=== PATIENT | female | born 1980 | race Hispanic/Latino ===

== ENCOUNTER 2016-11-09 16:02 | Emergency (ER) | payer OTHER ==
[~2016-11-09] VITALS: Ht 162.6 cm; Wt 59.0 kg
[~2016-11-09 16:02] MED LIST: COMPAZINE10 M1 PO; ENDOCET 325 MG-1 TA1 PO; FLEXERIL10 MG PO; LEVSIN0.125 M1 PO; OXYCODONE AND A1 TA2 PO; PERCOCET 325 MG1 TA2 PO; PERCOCET 325 MG1 TAB PO; PERCOCET 5-3251 EACH PO; PROMETHAZINE25 MG PR; PROTONIX20 M1 PO; ULTRAM(MONOGRAP50 MG PO; VICODIN 300 MG-1 TAB PO; ZOFRAN 4 MG TABL4 MG PO; ZOFRAN 8MG8 MG PO; ZOFRAN ODT4 MG PO; ZOFRAN4 M1 SL; ZOFRAN4 M2 PO
[2016-11-09 16:25] VITALS: BP 129/86
== END 2016-11-09 16:38 | disposition admitted as inpatient to this hospital (09) ==
LOC: ERH 16:02
DX: N93.9 Abnormal uterine and vaginal bleeding, unspecified (principal)
CPT/HCPCS: 81025

== ENCOUNTER 2017-10-30 15:17 | Emergency (ER) | payer OTHER ==
[~2017-10-30] VITALS: Ht 167.6 cm; Wt 72.6 kg
[~2017-10-30 15:17] MED LIST changes: +CEFUROXIME500 MG PO; +IBUPROFEN800 M1 PO; +ZOFRAN ODT4 M1 SL
[2017-10-30 15:45] LABS: ABSOLUTE BASOPHIL COUNT 0 /CUMM (0.0-0.2); ABSOLUTE EOSINOPHIL COUNT 0 /CUMM (0.0-0.7); ABSOLUTE LYMPH COUNT 0.9 /CUMM (1.2-3.4); ABSOLUTE MONOCYTE COUNT 0.4 /CUMM (0.10-0.60); BASOPHIL % 0.1 % (0.0-2.0); EOSINOPHIL % 0.1 % (0-5); GRANULOCYTE % 93.1 % (42.2-75.2); MEAN CORPUSCULAR HGB 31.4 PG (27.0-31.0); MEAN CORPUSCULAR HGB CONC 33.5 G/DL (33.0-37.0); MEAN CORPUSCULAR VOLUME 93.8 FL (81.0-99.0); MEAN PLATELET VOLUME 7.4 FL (7.4-10.4); PLATELET COUNT 316 /CUMM (130-400); RBC DISTRIBUTION WIDTH 14.2 % (11.5-14.5); RED BLOOD CELL CT 4.38 /CUMM (4.20-5.40); WHITE BLOOD CELL COUNT 20.4 /CUMM (4.8-10.8)
--- NOTE | 2017-10-30 16:22 | ED GI/GU/ABDOMINAL COMPLAINT ---
History of Present Illness General Chief Complaint: Nausea, Vomiting, Diarrhea Stated Complaint: +N/V Source: patient, family Exam Limitations: no limitations Vital Signs & Intake/Output Vital Signs & Intake/Output Vital Signs Date Time Temp Pulse Resp B/P B/P Pulse O2 O2 Flow FiO2 Mean Ox Delivery Rate 10/30 2226 98.0 70 20 122/78 98 10/30 1856 98.5 76 18 105/57 98 Room Air 10/30 1710 Room Air 10/30 1649 97.9 71 18 125/75 97 Room Air 10/30 1524 98.1 84 18 127/71 96 Room Air ED Intake and Output 10/31 0000 10/30 1200 Intake Total Output Total Balance Patient 160 lb Weight Allergies Coded Allergies: latex (RASH, SOB 05/16/16) Reconcile Medications Acetaminophen (Tylenol Extra Strength) 500 MG TABLET 1 TAB PO TID Flank Pain Cefuroxime Axetil (Cefuroxime) 500 MG TABLET 1 TAB PO BID urine infection Cephalexin (Keflex) 500 MG CAPSULE 1 CAP PO Q6 Pyelonephritis Ibuprofen 800 MG TABLET 1 TAB PO TID PRN PAIN Ondansetron (Zofran Odt) 4 MG TAB.RAPDIS 1 TAB SL TID PRN NAUSEA Ondansetron (Zofran Odt) 4 MG TAB.RAPDIS 1 TAB SL TID PRN vomiting Ondansetron (Zofran Odt) 4 MG TAB.RAPDIS 1 TAB SL TID Nausea and Vomiting Oxycodone HCl 5 MG CAPSULE 1 CAP PO 4XDP Flank Pain/Pyelonephritis Triage Note: 37F WITH SEVERE ABDOMINAL/RIGHT FLANK PAIN WITH VOMITING SINCE LAST NIGHT. HX NEPHRECTOMY. MEDICATED WITH ZOFRAN IN TRIAGE. PT BARELY ABLE TO SPEAK DUE TO PAIN AND DISTRESS. Triage Nurses Notes Reviewed? yes ? N Is pt currently ? No HPI: 37 yo F PMH left nephrectomy presenting with abdominal pain, N/V, urinary Sx. Abdominal pain for the last 1-2 days, right flank, constant with flucutating intensity, radiating to the RLQ, progressive, worse with movement or palpation. Some loose watery bowel movements. Nausea with 10+ episodes of NBNB emesis, patient tried to control Sx with zofran without relief. Associated urinary Sx with dysuria, increased urinary frequency, dark urine. Denies fevers, chills, chest pain, SOB, palpitations, cough or URI Sx, constipation, bloody stools, vaginal discharge, vaginal bleeding. (Vivek Winslow MD) Past History Travel History Traveled to [place] past 21 day No Medical History Any Pertinent Medical History? 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 No (Vivek Winslow MD) Review of Systems Review of Systems Constitutional: Reports: see HPI. EENTM: Reports: no symptoms. Respiratory: Reports: no symptoms. Cardiovascular: Reports: no symptoms. GI: Reports: see HPI. Genitourinary: Reports: see HPI. Musculoskeletal: Reports: no symptoms. Skin: Reports: no symptoms. Neurological/Psychological: Reports: no symptoms. Hematologic/Endocrine: Reports: no symptoms. Immunologic/Allergic: Reports: no symptoms. All Other Systems: Reviewed and Negative (Vivek Winslow MD) Physical Exam Physical Exam General Appearance: well developed/nourished, no apparent distress, alert, awake , mild distress Head: atraumatic Eyes: Bilateral: PERRL, EOMI. Ears, Nose, Throat, Mouth: hearing grossly normal, moist mucous membrane Neck: normal inspection Respiratory: normal breath sounds, no respiratory distress, lungs clear Cardiovascular: regular rate/rhythm, normal peripheral pulses Gastrointestinal: soft, tenderness Comments: General: Grimacing, appears uncomfortable, mild distress, laying still in hospital bed Abdomen: Mild suprapubic and RLQ TTP without rebound or guarding Back: Marked right CVA TTP, no midline vertebral bony TTP Core Measures ACS in differential dx? No Sepsis Present: No Sepsis Focused Exam Completed? No (Vivek Winslow MD) Progress Differential Diagnosis: AAA, AMI, appendicitis, biliary colic, bowel obstruction , colon cancer, cholecystitis, diverticulitis, ectopic , endometritis, esophageal varices, gastritis, hepatitis, hernia, hemorrhoids, ischemic bowel, inflamm bowel dis, intrauterine , kidney stone, Stephanie-Valdez tear, ovarian cyst, ovarian torsion, pancreatitis, PID/cervicitis, peptic ulcer, PUD/ GERD, perforated viscous, SBO, threatened AB, UTI/pyelo Plan of Care: Orders Procedure Date/time Status Add-on Test (ER Only) 10/30 1904 Active CULTURE,URINE 10/30 1834 Active LACTIC ACID 10/30 182 Complete Add-on Test (ER Only) 10/30 175 Active HUMAN BETA HCG SCREEN 10/30 153 Complete URINALYSIS 10/30 152 Complete LIPASE 10/30 152 Complete LACTIC ACID 10/30 152 Complete COMPREHENSIVE METABOLIC PANEL 10/30 152 Complete CBC WITHOUT DIFFERENTIAL 10/30 152 Complete Laboratory Tests 10/30/17 191: Lactic Acid 1.5 10/30/171834: Urine Color BLDY H, Urine Clarity TURBD H, Urine pH 7.0, Ur Specific Agenda 1.020, Urine Protein >=300 H, Urine Ketones TRACE H, Urine Nitrite POS H, Urine Bilirubin NEG@ICTO, Urine Urobilinogen 1.0, Ur Leukocyte Esterase LARGE H , Ur Microscopic SEDIMENT EXAMINED, Urine RBC PACKD H, Urine WBC PACKD H, Ur Epithelial Cells FEW, Urine Bacteria FEW H, Urine Mucus FEW, Urine Hemoglobin LARGE H, Urine Glucose NEG 10/30/17 1647: Urine Test Cancelled 10/30/17 1530: Anion Gap 17 H, Estimated GFR > 60, BUN/Creatinine Ratio 18.6, Glucose 149 H, Lactic Acid 2.7 H, Calcium 10.1, Total Bilirubin 1.0, AST 30, ALT 34, Alkaline Phosphatase 80, Total Protein 8.5 H, Albumin 5.4 H, Globulin 3.1, Albumin/ Globulin Ratio 1.7, Lipase 39, Total Beta HCG NEGATIVE, CBC w Diff MAN DIFF ORDERED, RBC 4.38, MCV 93.8, MCH 31.4 H, MCHC 33.5, RDW 14.2, MPV 7.4, Gran % 93.1 H, Lymphocytes % 4.6 L, Monocytes % 2.1, Eosinophils % 0.1, Basophils % 0.1, Absolute Granulocytes 19.0 H, Absolute Lymphocytes 0.9 L, Absolute Monocytes 0.4, Absolute Eosinophils 0, Absolute Basophils 0, Platelet Estimate ADEQUATE, Normocytic RBCs VERIFIED, Normochromic RBCs VERIFIED Microbiology 10/30 1834 URINE ROUT: Urine Culture - RECD Physician MDM: 37 yo F PMH left nephrectomy presenting with abdominal pain, N/V, urinary Sx. VSS, afebrile, HR and BP stable, remainder of exam as above. DDx: UTI, cystitis, pyelonephritis, nephrolithiasis, less likely ovarian pathology ( given marked CVA TTP on exam), less likely appendicitis or other surgical abdominal pathology. 2L NS, zofran and morphine given with marked improvement in pain and nausea, on re-examination patient resting comfortably. Lactate 2.7. CBC with leukocytosis to 20.4. CMP and Lipase unremarkable, mild hypernatremia. UA leukocyte and nitrite positive, packed with RBSCs and WBCs, suggestive of infection, will treat with ceftriaxone, send UCx. CT A/P without nephrolithiasis or vinicius-nephric fat stranding, showed cystic ovaries (<3 cm) similar to previous exam without ovarian enlargement. On re-examination patient resting comfortably, pain and nausea resolved. I discussed admission vs. discharge with the patient, I feel that she has pyelonephritis (markedly abnormal UA with point TTP over right CVA) and that admission would not be unreasonable given the significant pain and nausea the patient had on presentation, She would like to go home and is requesting discharge stating that she feels well and would like to try and manage her symptoms outpatient. Repeat lactate 1.7, clearing with fluids. Patient tolerated PO intake well in ED, on re-examination mild right flank pain/ CVA TTP, abdominal TTP resolved, nausea well controlled. Discharged with strict return precuations for recurrent severe pain, emesis, or other new/concerning symptoms. Patient instructed to f/u with PMD in the next 2-3 days for results of urine culture and re-evaluation. Initial ED EKG: none (Goldy RIVAS,Vivek) Departure Departure Disposition: HOME OR SELF CARE Condition: Stable Clinical Impression Primary Impression: Pyelonephritis Referrals: Patient Has No Primary Care Dr (PCP/Family) Additional Instructions: Take tylenol for mild-moderate pain. Take oxycodone for severe pain. Take zofran for nausea. Take keflex for the next 14 days. Follow up with your primary care physician in the next 2-3 days for results of urine culture, you may need a different antibiotic based on these results Return to the ED if you experience recurrent severe pain. Return to the ED if you experience nausea and vomiting such that you cannot take your medications. Return to the ED for any new, worsening, or concerning symptoms. Departure Forms: Customer Survey General Discharge Information Prescriptions: Current Visit Scripts Acetaminophen (Tylenol Extra Strength) 1 TAB PO TID #30 TAB Oxycodone HCl 1 CAP PO 4XDP #10 CAP Ondansetron (Zofran Odt) 1 TAB SL TID #20 TAB Cephalexin (Keflex) 1 CAP PO Q6 #56 CAP (Goldy RIVAS,Vivek) Resident Co-Sign Statement Statement: ED Attending supervision documentation- I saw and evaluated the patient. I have also reviewed all the pertinent lab results and diagnostic results. I agree with the findings and the plan of care as documented in the Resident's documentation. x I have reviewed the ED Record and agree with the Resident's documentation. [] Additions or exceptions (if any) to the Resident's note and plan are summarized below: [] (Angelita RIVAS,Andrés)
--- NOTE | 2017-10-30 19:20 | CT SCAN REPORT ---
EXAMINATION: CT ABDOMEN AND PELVIS WITH CONTRAST CLINICAL INFORMATION: Right flank pain. Nephrolithiasis versus pyelonephritis. COMPARISON: Multiple prior CT scans of the abdomen and pelvis, most recent of which is dated 06/09/2017 and most remote of which is dated 03/23/2012. TECHNIQUE: Multidetector CT volumetric acquisition of the abdomen and pelvis was performed after the administration of 95 and mL of intravenous Optiray 320. The data set was reformatted in the sagittal and coronal planes and reviewed on an independent workstation. DLP: 274.99 mGy-cm. FINDINGS: LUNG BASES: The visualized lung bases are unremarkable. LIVER, GALLBLADDER, AND BILIARY TREE: The liver is normal in size and shape, and diffusely lower in attenuation compared to the spleen, consistent with hepatic steatosis. There is a 1.0 x 1.2 cm geographic area of relative hypoattenuation seen in hepatic segment 4B (series 2, image 30) adjacent to the falciform ligament, unchanged dating back to 01/12/2016, consistent with a benign area of altered vascular perfusion. The previously demonstrated tiny 0.6 cm low-attenuation mass in right lobe of liver (series 2, image 22 on the 01/12/2016 CT scan) is not clearly seen on today's exam. No suspicious or new focal hepatic lesion on noncontrast imaging. No biliary ductal dilatation is present. The gallbladder is unremarkable with no evidence of radiopaque gallstones, gallbladder wall thickening, or obvious pericholecystic inflammatory changes. PANCREAS: Unremarkable on noncontrast imaging. SPLEEN, ADRENAL GLANDS: Unremarkable on noncontrast imaging. KIDNEYS AND URETERS: The left kidney is not seen. Hypertrophied right kidney is unremarkable. Right ureter is decompressed. No evidence of nephrolithiasis or hydroureteronephrosis is seen. BLADDER: Decompressed and not adequately assessed. No definite bladder calculi seen. PELVIC VISCERA: Bicornuate uterus is again visualized. Ovaries bilaterally appear cystic. These cysts measuring up to 3 cm in diameter, similar to the previous exam. Findings are likely physiologic in this young menstruating woman. GASTROINTESTINAL TRACT: The small and large bowel are unremarkable. The appendix is not seen. ABDOMINAL WALL: No significant hernia is appreciated. LYMPH NODES, VASCULAR: Unremarkable. OSSEOUS STRUCTURES: Unremarkable. IMPRESSION: 1. No evidence of nephrolithiasis or obstructive uropathy. 2. No evidence of pyelonephritis. 3. Large cystic masses are again seen in the ovaries bilaterally, somewhat changeable over the prior exams, likely physiologic in this young menstruating woman, measuring up to 3 cm in size. 4. Probable bicornuate uterus, similar to prior studies.
[2017-10-30] MEDS ORDERED: TYLENOL EXTRA500 M2 PO (22:01)
[2017-10-30] MEDS ORDERED: KEFLEX500 M1 PO (22:01)
[2017-10-30] MEDS ORDERED: OXYCODONE HCL5 M2 PO (22:01)
[2017-10-30] MEDS ORDERED: ZOFRAN ODT4 M1 SL (22:01)
[2017-10-30 22:26] VITALS: BP 122/78
== END 2017-10-30 22:27 ==
LOC: ERH 15:17
PROVIDERS: Emergency Medicine
DX: N12 Tubulo-interstitial nephritis, not specified as acute or chronic (principal)
CPT/HCPCS: 74177; 81001; 81025; 87086; 96361; 96374; 96375; J0696; J1885; J2405

== ENCOUNTER 2018-03-04 23:07 | Emergency (ER) | payer OTHER ==
[~2018-03-04] VITALS: Ht 162.6 cm; Wt 63.5 kg
[~2018-03-04 23:07] MED LIST changes: +KEFLEX500 M1 PO; +OXYCODONE HCL5 M2 PO; +TYLENOL EXTRA500 M2 PO
--- NOTE | 2018-03-04 23:31 | ED UPPER/LOWER EXTREMITY COMPL ---
History of Present Illness General Chief Complaint: Animal/Insect Bite Stated Complaint: RT CALF PAIN S/P ? INSECT BITE Source: patient Exam Limitations: no limitations Vital Signs & Intake/Output Vital Signs & Intake/Output . Allergies Coded Allergies: latex (RASH, SOB 05/16/16) Reconcile Medications Acetaminophen (Tylenol Extra Strength) 500 MG TABLET 1 TAB PO TID Flank Pain Cefuroxime Axetil (Cefuroxime) 500 MG TABLET 1 TAB PO BID urine infection Cephalexin (Keflex) 500 MG CAPSULE 1 CAP PO 4 TIMES/DAY INFECTION Cephalexin (Keflex) 500 MG CAPSULE 1 CAP PO Q6 Pyelonephritis diphenhydrAMINE HCl (Benadryl) 25 MG CAP 1-2 CAP PO QPM allergic reaction Ibuprofen 800 MG TABLET 1 TAB PO TID PRN PAIN Ibuprofen 600 MG TABLET 1 TAB PO TID pain with food Ondansetron (Zofran Odt) 4 MG TAB.RAPDIS 1 TAB SL TID PRN NAUSEA Ondansetron (Zofran Odt) 4 MG TAB.RAPDIS 1 TAB SL TID PRN vomiting Ondansetron (Zofran Odt) 4 MG TAB.RAPDIS 1 TAB SL TID Nausea and Vomiting Oxycodone HCl 5 MG CAPSULE 1 CAP PO 4XDP Flank Pain/Pyelonephritis Triage Nurses Notes Reviewed? yes Onset: Gradual Duration: hour(s): Timing: recent history Severity: mild Pain/Injury Location: Right: Leg. Method of Injury: insect bite Modifying Factors: Improves With: rest. Associated Symptoms: redness HPI: 37 yo woman presents with area of redness on her right calf x 8 hours. She shares, "I felt a bite in my right calf... and then I felt swelling and redness over the past several hours." She notes mild discomfort, "the redness seems to be going down towards my leg," and not proximally. No fever, chills, lymhpangitic streaking, joint pain. She is otherwise well. Past History Travel History Traveled to [place] past 21 day No Medical History Any Pertinent Medical History? 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 No Review of Systems Review of Systems Constitutional: Reports: no symptoms. EENTM: Reports: no symptoms. Respiratory: Reports: no symptoms. Cardiovascular: Reports: no symptoms. Gastrointestinal/Abdominal: Reports: no symptoms. Genitourinary: Reports: no symptoms. Musculoskeletal: Reports: no symptoms. Skin: Reports: no symptoms. Neurological/Psychological: Reports: no symptoms. Hematologic/Endocrine: Reports: no symptoms. Immunological: Reports: no symptoms. All Other Systems: Reviewed and Negative Physical Exam Physical Exam General Appearance: well developed/nourished, no apparent distress Head: atraumatic, normal appearance Eyes: Bilateral: normal appearance. Ears, Nose, Throat: normal pharynx, normal ENT inspection Neck: normal inspection Cardiovascular/Respiratory: no respiratory distress Back: normal inspection Leg Right: mild diffuse erythema on medial aspect of proximal calf, cool to touch, small punctate area suggestive of insect bite. no tenderness to palpation , no joint pain Progress Differential Diagnosis: insect bite, allergic reaction, cellulitis vs other. Plan of Care: Current Medications Sig/Jessa Start time Last Medication Dose Stop Time Status Admin Cephalexin 500 MG ONCE ONE 03/04 2345 UNVr (Keflex 500MG Cap) 03/04 2346 Diphenhydramine HCl 50 MG ONCE ONE 03/04 2345 UNVr (Benadryl) 03/04 2346 Ibuprofen 800 MG ONCE ONE 03/04 2345 UNVr (Motrin) 03/04 2346 Departure Departure Disposition: HOME OR SELF CARE Condition: Stable Clinical Impression Primary Impression: Insect bite Secondary Impressions: Allergic reaction, Cellulitis Referrals: Patient Has No Primary Care Dr (PCP/Family) Departure Forms: Customer Survey General Discharge Information Prescriptions: Current Visit Scripts Cephalexin (Keflex) 1 CAP PO 4 TIMES/DAY #40 CAP diphenhydrAMINE HCl (Benadryl) 1-2 CAP PO QPM #30 CAP Ibuprofen 1 TAB PO TID #30 TAB with food Comments pt with likely allergic reaction to insect bite. there may be minimal component of cellulitis.... will rx with benadryl/keflex... ibuprofen for discomfort... pt encouraged to return if sx worsen.
[2018-03-04] MEDS ORDERED: BENADRYL25 MG PO (23:33)
[2018-03-04] MEDS ORDERED: IBUPROFEN600 M1 PO (23:33)
[2018-03-04] MEDS ORDERED: KEFLEX500 M1 PO (23:33)
[2018-03-04 23:38] VITALS: BP 101/64
== END 2018-03-04 23:55 ==
LOC: ERH 23:07
DX: S80.861A Insect bite (nonvenomous), right lower leg, initial encounter (principal); L03.115 Cellulitis of right lower limb; T78.40XA Allergy, unspecified, initial encounter; W57.XXXA Bitten or stung by nonvenomous insect and other nonvenomous arthropods, initial encounter; Y92.9 Unspecified place or not applicable; Y93.9 Activity, unspecified